=== PATIENT | female | born 1960 | race Caucasian/White ===

== ENCOUNTER 2019-07-23 12:37 | Emergency (ER) | payer OTHER ==
[~2019-07-23] VITALS: Ht 157.5 cm; Wt 46.3 kg
[~2019-07-23 12:37] MED LIST: ABAC300; AMOX500 PO; GABA300 PO; OXYACE5T PO
[2019-07-23] MEDS ORDERED: LOSA25 PO (13:07)
[2019-07-23] MEDS ORDERED: OXYC10TA19 PO (13:07)
[2019-07-23 13:15] LABS: BASOPHILS ABSOLUTE AUTO 0.05 K/mm3 (0.00-0.23); BASOPHILS PERCENT AUTO 0 % (0-2); EOSINOPHILS ABSOLUTE AUTO 0.04 K/mm3 (0.00-0.68); EOSINOPHILS PERCENT AUTO 0 % (0-6); Hematocrit 40.8 % (33.0-51.0); Hemoglobin 13.6 g/dL (11.5-16.0); IMMATURE GRAN ABSOLUTE AUTO 0.09 K/mm3 (0.00-0.10); IMMATURE GRAN PERCENT AUTO 1 % (0-1); LYMPHOCYTES ABSOLUTE AUTO 2.27 K/mm3 (0.84-5.20); LYMPHOCYTES PERCENT AUTO 16 % (21-46); MONOCYTES ABSOLUTE AUTO 0.87 K/mm3 (0.16-1.47); MONOCYTES PERCENT AUTO 6 % (4-13); Mean Corpuscular HGB 29.4 pg (26.0-34.0); Mean Corpuscular HGB Conc 33.3 g/dL (31.5-36.5); Mean Corpuscular Volume 88 fL (80-100); Mean Platelet Volume 9.1 fL (9.1-12.4); NEUTROPHILS ABSOLUTE AUTO 10.83 K/mm3 (1.96-9.15); NEUTROPHILS PERCENT AUTO 77 % (41-73); Platelet Count 583 K/mm3 (150-400); RDW Coefficient Variation 13.8 % (11.7-14.2); RDW Standard Deviation 44.9 fL (35.1-46.3); Red Blood Cell Count 4.63 M/mm3 (3.80-5.20); White Blood Cell Count 14.15 K/mm3 (4.00-11.30)
[2019-07-23 13:33] LABS: Alanine Aminotransfer (ALT/SGP 13 U/L (12-78); Albumin, Blood 3.8 g/dL (3.4-5.0); Alk Phos 139 U/L (50-136); Anion Gap 12 mmol/L (6-16); Aspartate Aminotrans (AST/SGOT 13 U/L (12-37); Bilirubin, Total 0.4 mg/dL (0.1-1.0); Blood Urea Nitrogen 11 mg/dL (8-24); Bun/Creatinine Ratio 15.9 (12.0-20.0); CO2, Blood 25 mmol/L (21-32); Calcium, Blood 9.6 mg/dL (8.5-10.1); Chloride, Blood 96 mmol/L (98-108); Creatinine, Blood 0.69 mg/dL (0.40-1.00); Globulin, Blood 3.9 g/dL (2.2-4.0); Glomerular Filtration Rate >60 (60-); Glucose, Blood 102 mg/dL (70-99); Potassium, Blood 3.1 mmol/L (3.5-5.5); Sodium, Blood 133 mmol/L (136-145); Total Protein, Blood 7.7 g/dL (6.4-8.2)
[2019-07-23 14:50] LABS: Source, Urine Clean Catch
[2019-07-23 14:56] LABS: Bilirubin, Urine Neg (Neg); Blood, Urine Neg (Neg); Glucose Qualitative, Urine Neg (Neg); Ketones, Urine 3+ (Neg); Leukocyte Esterase, Urine Neg (Neg); Nitrite, Urine Neg (Neg); Protein, Urine Neg (Neg); Specific Gravity, Urine 1.005 (1.003-1.022); Urobilinogen, Urine NORM (Normal)
[2019-07-23 15:04] LABS: Appearance, Urine Clear (Clear); Color, Urine Pale Yellow (P-Yellow)
[2019-07-23] MEDS ORDERED: PROM25 PO (15:46)
[2019-07-23] MEDS ORDERED: PHENERGAN25 MG PR (15:46)
[2019-07-23] MEDS ORDERED: Fentanyl1 EACH TOP (15:46)
== END 2019-07-23 16:26 | disposition home or self-care (01) ==
LOC: ER 12:37
PROVIDERS: Physician Assistant
DX: C34.92 Malignant neoplasm of unspecified part of left bronchus or lung (principal); C79.51 Secondary malignant neoplasm of bone; R11.10 Vomiting, unspecified; Z88.8 Allergy status to other drugs, medicaments and biological substances; Z79.899 Other long term (current) drug therapy; F17.200 Nicotine dependence, unspecified, uncomplicated
CPT/HCPCS: 36415; 80053; 81003; 85025; 96361; 96365; 96375; 96376; 99283-25; J1885; J2550; J3010; J3480; J7120

== ENCOUNTER 2019-07-27 13:18 | Day surgery (SDC) | payer OTHER ==
[~2019-07-27 13:18] MED LIST changes: +Fentanyl1 EACH TOP; +LOSA25 PO; +OXYC10TA19 PO; +PHENERGAN25 MG PR; +PROM25 PO
== END 2019-07-27 22:46 | disposition home or self-care (01) ==
LOC: CT 13:18
DX: C88.0 Waldenstrom macroglobulinemia (principal); R91.1 Solitary pulmonary nodule; I10 Essential (primary) hypertension; F17.210 Nicotine dependence, cigarettes, uncomplicated; Z94.84 Stem cells transplant status; Z90.710 Acquired absence of both cervix and uterus; Z79.52 Long term (current) use of systemic steroids; Z79.899 Other long term (current) drug therapy; Z88.5 Allergy status to narcotic agent; Z88.8 Allergy status to other drugs, medicaments and biological substances
CPT/HCPCS: 20225; 77012; 88305; 88341; 88342

== ENCOUNTER 2019-08-02 16:20 | Emergency (ER) | payer OTHER ==
[~2019-08-02] VITALS: Ht 157.5 cm; Wt 44.9 kg
[2019-08-02 17:28] LABS: BASOPHILS ABSOLUTE AUTO 0.04 K/mm3 (0.00-0.23); BASOPHILS PERCENT AUTO 0 % (0-2); EOSINOPHILS ABSOLUTE AUTO 0.08 K/mm3 (0.00-0.68); EOSINOPHILS PERCENT AUTO 1 % (0-6); Hematocrit 40.1 % (33.0-51.0); Hemoglobin 13.1 g/dL (11.5-16.0); IMMATURE GRAN ABSOLUTE AUTO 0.04 K/mm3 (0.00-0.10); IMMATURE GRAN PERCENT AUTO 0 % (0-1); LYMPHOCYTES ABSOLUTE AUTO 1.62 K/mm3 (0.84-5.20); LYMPHOCYTES PERCENT AUTO 13 % (21-46); MONOCYTES ABSOLUTE AUTO 0.75 K/mm3 (0.16-1.47); MONOCYTES PERCENT AUTO 6 % (4-13); Mean Corpuscular HGB 29.3 pg (26.0-34.0); Mean Corpuscular HGB Conc 32.7 g/dL (31.5-36.5); Mean Corpuscular Volume 90 fL (80-100); Mean Platelet Volume 9.1 fL (9.1-12.4); NEUTROPHILS ABSOLUTE AUTO 10.26 K/mm3 (1.96-9.15); NEUTROPHILS PERCENT AUTO 80 % (41-73); Platelet Count 488 K/mm3 (150-400); RDW Standard Deviation 46.2 fL (35.1-46.3); Red Blood Cell Count 4.47 M/mm3 (3.80-5.20); White Blood Cell Count 12.79 K/mm3 (4.00-11.30)
[2019-08-02 17:51] LABS: Alanine Aminotransfer (ALT/SGP 11 U/L (12-78); Albumin, Blood 3.4 g/dL (3.4-5.0); Albumin/Globulin Ratio 0.8 (0.8-1.8); Alk Phos 125 U/L (50-136); Anion Gap 9 mmol/L (6-16); Aspartate Aminotrans (AST/SGOT 8 U/L (12-37); Bilirubin, Total 0.3 mg/dL (0.1-1.0); Blood Urea Nitrogen 6 mg/dL (8-24); Bun/Creatinine Ratio 8.6 (12.0-20.0); CO2, Blood 25 mmol/L (21-32); Calcium, Blood 9.5 mg/dL (8.5-10.1); Chloride, Blood 102 mmol/L (98-108); Globulin, Blood 4.1 g/dL (2.2-4.0); Glomerular Filtration Rate >60 (60-); Glucose, Blood 123 mg/dL (70-99); Potassium, Blood 3.5 mmol/L (3.5-5.5); Sodium, Blood 136 mmol/L (136-145); Total Protein, Blood 7.5 g/dL (6.4-8.2)
[2019-08-02] MEDS ORDERED: LORA.5 (18:15)
== END 2019-08-02 22:09 | disposition home or self-care (01) ==
LOC: ER 16:20
PROVIDERS: Physician Assistant
DX: G44.209 Tension-type headache, unspecified, not intractable (principal); G89.29 Other chronic pain; R11.10 Vomiting, unspecified; F17.210 Nicotine dependence, cigarettes, uncomplicated; Z88.1 Allergy status to other antibiotic agents; Z88.8 Allergy status to other drugs, medicaments and biological substances
CPT/HCPCS: 36415; 80053; 85025; 96361; 96374; 96375; 99283-25; J0780; J1200; J1885; J7030

== ENCOUNTER → 2019-09-07 | Outpatient (CLI) | payer OTHER ==
[~2019-09-07] MED LIST changes: +LORA.5
[2019-09-07 11:55] LABS: BASOPHILS ABSOLUTE AUTO 0.01 K/mm3 (0.00-0.23); BASOPHILS PERCENT AUTO 0 % (0-2); EOSINOPHILS PERCENT AUTO 0 % (0-6); Hematocrit 32.9 % (33.0-51.0); Hemoglobin 10.9 g/dL (11.5-16.0); IMMATURE GRAN ABSOLUTE AUTO 0.03 K/mm3 (0.00-0.10); IMMATURE GRAN PERCENT AUTO 1 % (0-1); LYMPHOCYTES ABSOLUTE AUTO 1.09 K/mm3 (0.84-5.20); LYMPHOCYTES PERCENT AUTO 23 % (21-46); MONOCYTES ABSOLUTE AUTO 0.12 K/mm3 (0.16-1.47); MONOCYTES PERCENT AUTO 3 % (4-13); Mean Corpuscular HGB 29.9 pg (26.0-34.0); Mean Corpuscular HGB Conc 33.1 g/dL (31.5-36.5); Mean Corpuscular Volume 90 fL (80-100); Mean Platelet Volume 9.5 fL (9.1-12.4); NEUTROPHILS ABSOLUTE AUTO 3.46 K/mm3 (1.96-9.15); NEUTROPHILS PERCENT AUTO 74 % (41-73); Platelet Count 169 K/mm3 (150-400); RDW Standard Deviation 48.4 fL (35.1-46.3); Red Blood Cell Count 3.65 M/mm3 (3.80-5.20); White Blood Cell Count 4.71 K/mm3 (4.00-11.30)
[2019-09-07 12:06] LABS: Albumin, Blood 3.1 g/dL (3.4-5.0); Albumin/Globulin Ratio 0.7 (0.8-1.8); Bilirubin, Total 0.3 mg/dL (0.1-1.0); Bun/Creatinine Ratio 16.5 (12.0-20.0); Calcium, Blood 8.5 mg/dL (8.5-10.1); Creatinine, Blood 2.43 mg/dL (0.40-1.00); Globulin, Blood 4.3 g/dL (2.2-4.0); Potassium, Blood 4.6 mmol/L (3.5-5.5); Total Protein, Blood 7.4 g/dL (6.4-8.2)
== END | disposition home or self-care (01) ==
LOC: LAB SHORT 11:32 → LAB 11:32
PROVIDERS: Registered Nurse Oncology
DX: C34.90 Malignant neoplasm of unspecified part of unspecified bronchus or lung (principal)
CPT/HCPCS: 80053; 85025

== ENCOUNTER 2020-04-18 13:42 | Inpatient (IN) | payer OTHER ==
[~2020-04-18] VITALS: Ht 157.5 cm; Wt 40.8 kg
[2020-04-18] MEDS ORDERED: LORA.5 PO (14:28)
[2020-04-18] MEDS ORDERED: PROM25 PO (14:29)
[2020-04-18] MEDS ORDERED: ONDA4ODT MM (14:29)
[2020-04-18] MEDS ORDERED: PROC5 PO (14:30)
[2020-04-18] MEDS ORDERED: MORP20L SL (14:30)
[2020-04-18] MEDS ORDERED: HYOS.125 SL (14:31)
[2020-04-18] MEDS ORDERED: Haloperidol2 MG/1 ML PO (14:32)
[2020-04-18] MEDS ORDERED: ACET325 PO (14:33)
[2020-04-18 14:41] LABS: BASOPHILS ABSOLUTE AUTO 0.02 K/mm3 (0.00-0.23); BASOPHILS PERCENT AUTO 0 % (0-2); EOSINOPHILS ABSOLUTE AUTO 0.06 K/mm3 (0.00-0.68); EOSINOPHILS PERCENT AUTO 0 % (0-6); Hematocrit 29.5 % (33.0-51.0); Hemoglobin 9.3 g/dL (11.5-16.0); IMMATURE GRAN ABSOLUTE AUTO 0.35 K/mm3 (0.00-0.10); IMMATURE GRAN PERCENT AUTO 2 % (0-1); LYMPHOCYTES PERCENT AUTO 7 % (21-46); MONOCYTES ABSOLUTE AUTO 0.38 K/mm3 (0.16-1.47); MONOCYTES PERCENT AUTO 2 % (4-13); Mean Corpuscular HGB 30.9 pg (26.0-34.0); Mean Corpuscular HGB Conc 31.5 g/dL (31.5-36.5); Mean Corpuscular Volume 98 fL (80-100); Mean Platelet Volume 9.7 fL (9.1-12.4); NEUTROPHILS ABSOLUTE AUTO 13.89 K/mm3 (1.96-9.15); NEUTROPHILS PERCENT AUTO 88 % (41-73); Platelet Count 345 K/mm3 (150-400); RDW Coefficient Variation 15.6 % (11.7-14.2); RDW Standard Deviation 56.1 fL (35.1-46.3); Red Blood Cell Count 3.01 M/mm3 (3.80-5.20)
[2020-04-18 14:56] LABS: International Normalized Ratio 0.91; Prothrombin Time Results 9.8 Sec (9.7-11.5)
[2020-04-18 14:57] LABS: Alanine Aminotransfer (ALT/SGP 13 U/L (12-78); Albumin, Blood 2.7 g/dL (3.4-5.0); Albumin/Globulin Ratio 0.7 (0.8-1.8); Alk Phos 105 U/L (50-136); Anion Gap 5 mmol/L (6-16); Aspartate Aminotrans (AST/SGOT 9 U/L (12-37); Bilirubin, Total 0.2 mg/dL (0.1-1.0); Blood Urea Nitrogen 16 mg/dL (8-24); Bun/Creatinine Ratio 16.1 (12.0-20.0); CO2, Blood 26 mmol/L (21-32); Calcium, Blood 8.9 mg/dL (8.5-10.1); Chloride, Blood 108 mmol/L (98-108); Creatinine, Blood 0.99 mg/dL (0.40-1.00); Globulin, Blood 3.9 g/dL (2.2-4.0); Glomerular Filtration Rate >60 (60-); Glucose, Blood 121 mg/dL (70-99); Potassium, Blood 4.1 mmol/L (3.5-5.5); Sodium, Blood 139 mmol/L (136-145); Total Protein, Blood 6.6 g/dL (6.4-8.2)
[2020-04-18] MEDS ORDERED: LOSA25 PO (15:27)
[2020-04-18] MEDS ORDERED: [UNRECOGNIZED DRUG - OTHER] TOP (15:27)
[2020-04-18] MEDS ORDERED: OMEP20ER PO (15:27)
[2020-04-18] MEDS ORDERED: Milk Of Ma400 MG/5 M PO (15:30)
[2020-04-18] MEDS ORDERED: BISA10S PR (15:31)
[2020-04-18] MEDS ORDERED: Cyproheptadine H4 MG PO (15:32)
[2020-04-18] MEDS ORDERED: GABAPENTIN250 MG/51 PO (15:33)
[2020-04-18] MEDS ORDERED: MIRALAX17 GM PO (15:33)
[2020-04-18] MEDS ORDERED: DOCUZEN 8.6-501 EACH PO ×2 (15:34)
[2020-04-18] MEDS ORDERED: Methadose10 MG/1 ML PO (15:36)
[2020-04-18] MEDS ORDERED: DEXAMETHASO4 MG/1 M1 PO (15:37)
[2020-04-18] MEDS ORDERED: Xylocaine5 M1 MT (15:39)
[2020-04-18] MEDS ORDERED: Q-Tussin100 MG/5 M PO (15:40)
--- NOTE | 2020-04-18 20:18 | NUR ---
PT ARRIVED TO ROOM AT 1800 AND SETTLED IN. AT BEDSIDE. GOT METHADONE, ROXONAL, AND LEVSIN MEDS CLARIFIED AND PT WAS TREATED FOR PAIN AFTER ARRIVAL TO FLOOR. DINNER HELD DUE TO UNKNOWN IF IVC FILTER TO BE PLACED TONIGHT OR NOT. HAVE CALLED [facility] AND LEFT A MESSAGE ON DR. ZUNIGA PHONE QUESTIONING WHEN PROCEDURE TO BE COMPLETED. REPORT GIVEN TO ONCOMING SHIFT RN.
[2020-04-19 07:06] LABS: Hematocrit 28.2 % (33.0-51.0); Hemoglobin 8.9 g/dL (11.5-16.0)
[2020-04-19 07:18] LABS: Bun/Creatinine Ratio 18.5 (12.0-20.0); Creatinine, Blood 1.08 mg/dL (0.40-1.00); Potassium, Blood 4.7 mmol/L (3.5-5.5)
--- NOTE | 2020-04-19 12:58 | NUR ---
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 When I went to visit pt she was sitting crosslegged in bed and on the phone with family member. She was calm and appeared comfortable with no nonverbal indicators of pain noted currently. RN had just medicated for musculoskelatal pain within the past 20 minutes. 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 She remains on hospice services and will be resumed to hospice once d/c'd back home with family. Per it support consultant, she did not disenroll and current issue does not require pt to disenroll to tx palliatively for prevention of further complications from DVT that would greatly impair her quality of life or level of comfort. I will return to room if requested or need indicated. Pt is hopeful for return home [facility].
--- NOTE | 2020-04-19 17:29 | NUR ---
SHIFT SUMMARY PATIENT MEDICATED SEVERAL TIMES FOR PAIN THIS SHIFT AND X1 FOR ANXIETY. PATIENT DENIES NAUSEA AND SHORTNESS OF BREATH. PATIENT UP SBA TO BR. PATIENT NPO TODAY PENDING IVC FILTER PLACEMENT. HEPARIN DRIP RUNNING AT 16.4 MLS/HR. PATIENT TAKEN TO [facility]. REPORT GIVEN TO OPERATIONS SUPPORT ANALYSTANTONELLA SCOTT.
--- NOTE | 2020-04-19 18:51 | NUR ---
RECIEVED PT FROM FINE ARTIST, SHE IS A BIT SLEEPY, HAS A DRESSING TO HER RIJ, LEFT POSTERIOR KNEE, BOTH SOFT, V.S. STABLE, SPOUCE IN ROOM. CALL LIGHT IN REACH.
[2020-04-20 03:53] LABS: International Normalized Ratio 0.94; Prothrombin Time Results 10.1 Sec (9.7-11.5)
--- NOTE | 2020-04-20 06:29 | NUR ---
SHIFT SUMMARY NO ACUTE CHANGES THIS SHIFT. PT A&OX4. SP02 >92% ON RA. TELEMETRY READS SR, HR 70'S. RIJ AND POPLITEAL SITES C/D/I, SOFT, NO BLEEDING. PT UP TO BSC WITH MINIMAL ASSISTANCE. PT C/O L SHOULDER PAIN. PLACED A HEATING PAD UNDER SHOULDER AND MEDICATED WITH ROXANOL PER EMAR X2. HEPARIN INFUSING PER EMAR. CALL LIGHT WITHIN REACH. WILL CONTINUE TO MONITOR.
--- NOTE | 2020-04-20 07:45 | NUR ---
PT LAYING IN BED WITH EYES CLOSED WAKES EASILY, REPORTS HER PAIN IS 7/10, V.S. STABLE, A/OX3, COOPERATIVE WITH CARE, FOLLOWS COMMANDS WELL, LUNGS ARE CLEAR IN UPPER [place], DIM IN BASES, RESP EVEN AND UNLABORED, NO COUGH NOTED, HRR, TELE IN PLACE, RUNNING SR IN THE 60'S, NO EDEMA NOTED, PPP+1, CAP REFILL <3 SEC, VS STABLE, AFEBRILE, IV SITE IS CLEAR AND PATENT, BTX4, ABD FLAT SOFT NONTENDER, VOIDS WITHOUT DIFF, SKIN HAS ACCESS DRESSINGS TO RIJ AND LEFT POSTERIOR KNEE, BOTH SOFT, NO DRAINAGE, MAEW, WEAK, [place] CALL LIGHT IN REACH.
--- NOTE | 2020-04-20 14:35 | NUR ---
pt has been discharged to home on hospice, iv removed intact, went over discharge instructions with her, she verbalized understanding. left via wheelchair with her ride and hog trader in attendence.
--- NOTE | 2020-04-20 15:14 | NUR ---
will contact hospice for support on getting her on blood thinner meds.
== END 2020-04-20 13:54 | disposition hospice, home (50) | DRG 271 ==
LOC: ER 13:42 → MEDS 13:43 → PCU 04-19 18:44
PROVIDERS: Emergency Medicine; Physician Assistant; ADMIT Internal Medicine
PROC: 06H03DZ Insertion of Intraluminal Device into Inferior Vena Cava, Percutaneous Approach (ICD-10-PCS; principal; 2020-04-19)
PROC: 06CN3ZZ Extirpation of Matter from Left Femoral Vein, Percutaneous Approach (ICD-10-PCS; 2020-04-19)
PROC: 06CG3ZZ Extirpation of Matter from Left External Iliac Vein, Percutaneous Approach (ICD-10-PCS; 2020-04-19)
PROC: 067D3ZZ Dilation of Left Common Iliac Vein, Percutaneous Approach (ICD-10-PCS; 2020-04-19)
PROC: 067G3ZZ Dilation of Left External Iliac Vein, Percutaneous Approach (ICD-10-PCS; 2020-04-19)
DX: I82.4Z2 Acute embolism and thrombosis of unspecified deep veins of left distal lower extremity (principal); C79.51 Secondary malignant neoplasm of bone; Z85.118 Personal history of other malignant neoplasm of bronchus and lung; Z51.5 Encounter for palliative care; C88.0 Waldenstrom macroglobulinemia; D63.0 Anemia in neoplastic disease; I10 Essential (primary) hypertension; F17.210 Nicotine dependence, cigarettes, uncomplicated
CPT/HCPCS: 36005; 36415; 37191; 37212; 37248; 37249; 75820; 76937; 80048; 80053; 85014; 85018; 85025; 85610; 85730; 96365; 96366; 96376; 99152; 99153; 99284; C1725; C1757; C1769; C1880; C1887; C1894; G0378; J1644; J2250; J3010; J7030; J8540; Q9967; U0003